=== PATIENT | male | born 1995 | race Caucasian/White ===

== ENCOUNTER 2022-04-12 20:42 | Emergency (ER) | payer SELFPAY ==
[~2022-04-12] VITALS: Ht 175.3 cm; Wt 72.6 kg
[2022-04-12] MEDS ORDERED: KEPPRA500 MG PO (20:54)
--- OUTSIDE RECORDS SUMMARY | 2022-04-12 21:50 | XMS ---
PreManage Notification: ISABELLE WELLS [employer] Events No recent Security Events currently on file CRITERIA MET - [facility] PROVID[facility] TOMMY HERNANDEZ Internal Medicine: Clinical Cardiac Current Electrophysiology PHONE: [phone] Reynaldo Johnson [facility] Current DO PHONE: [phone] Oracio Montano DO Family Medicine Current PHONE: Unknown REYNALDO MCCALL Family Medicine Current PHONE: Unknown Jose Antonio has no Care Guidelines for this patient. Pauline VISIT COUNT (12 MO.) 1 AURELIANO Grady TOTAL 1 NOTE: Visits indicate total known visits. ED/UCC VISIT TRACKING (12 MO.) 04/12/2022 20:43 AURELIANO Paulson OR TYPE: Emergency COMPLAINT: - SEIZURE INPATIENT VISIT TRACKING (12 MO.) No inpatient visits to display in this time frame [email or web address]
== END 2022-04-12 22:19 | disposition home or self-care (01) ==
LOC: ED 20:42
DX: G40.909 Epilepsy, unspecified, not intractable, without status epilepticus (principal); Z79.899 Other long term (current) drug therapy
CPT/HCPCS: 36415; 80053; 85025; 99284